=== PATIENT | male | born 1970 | race Caucasian/White ===

== ENCOUNTER 2018-01-31 18:13 | Inpatient (IN) | payer OTHER ==
[~2018-01-31] VITALS: Ht 162.6 cm; Wt 110.7 kg
[~2018-01-31 18:13] MED LIST: DIOVAN160 M1 PO; DIOVAN40 MG PO; GLUCOPHAGE XR500 MG PO
[2018-02-06] MEDS ORDERED: CARDURA XL4 MG PO (15:35)
[2018-02-06] MEDS ORDERED: TRADJENTA5 MG PO (15:37)
== END 2018-02-06 17:15 | disposition home or self-care (01) | DRG 684 ==
LOC: ER 18:13 → MEDI 22:18 → SURH 02-03 01:18
PROVIDERS: Urology
PROC: BW21ZZZ Computerized Tomography (CT Scan) of Abdomen and Pelvis (ICD-10-PCS; 2018-01-31)
PROC: 0TF68ZZ Fragmentation in Right Ureter, Via Natural or Artificial Opening Endoscopic (ICD-10-PCS; 2018-02-02)
PROC: 0T788DZ Dilation of Bilateral Ureters with Intraluminal Device, Via Natural or Artificial Opening Endoscopic (ICD-10-PCS; 2018-02-02)
PROC: 0TF78ZZ Fragmentation in Left Ureter, Via Natural or Artificial Opening Endoscopic (ICD-10-PCS; principal; 2018-02-02 19:00)
DX: N17.8 Other acute kidney failure (principal); N13.2 Hydronephrosis with renal and ureteral calculous obstruction; E11.649 Type 2 diabetes mellitus with hypoglycemia without coma; E11.65 Type 2 diabetes mellitus with hyperglycemia; E11.21 Type 2 diabetes mellitus with diabetic nephropathy; E11.22 Type 2 diabetes mellitus with diabetic chronic kidney disease; I12.9 Hypertensive chronic kidney disease with stage 1 through stage 4 chronic kidney disease, or unspecified chronic kidney disease; N18.3 Chronic kidney disease, stage 3 (moderate); E66.01 Morbid (severe) obesity due to excess calories

== ENCOUNTER 2018-04-06 05:15 | Day surgery (SDC) | payer OTHER ==
[~2018-04-06 05:15] MED LIST changes: +ASA81 MG PO; +CARDURA XL4 MG PO; +GLIMEPIRIDE4 MG PO; +TRADJENTA5 MG PO
== END 2018-04-06 13:05 | disposition home or self-care (01) ==
LOC: CIR.AMB 05:15
DX: N20.0 Calculus of kidney (principal)

== ENCOUNTER 2018-06-07 16:04 | Inpatient (IN) | payer OTHER ==
[~2018-06-07] VITALS: Ht 160 cm; Wt 108.9 kg
== END 2018-06-12 14:48 | disposition home or self-care (01) | DRG 683 ==
LOC: ER 16:04 → MEDJ 19:14
PROVIDERS: Urology
PROC: BW25ZZZ Computerized Tomography (CT Scan) of Chest, Abdomen and Pelvis (ICD-10-PCS; 2018-06-07)
PROC: 0T788DZ Dilation of Bilateral Ureters with Intraluminal Device, Via Natural or Artificial Opening Endoscopic (ICD-10-PCS; 2018-06-08)
PROC: 0TF68ZZ Fragmentation in Right Ureter, Via Natural or Artificial Opening Endoscopic (ICD-10-PCS; principal; 2018-06-08 10:15)
DX: N17.8 Other acute kidney failure (principal); N20.2 Calculus of kidney with calculus of ureter; N13.5 Crossing vessel and stricture of ureter without hydronephrosis; E11.22 Type 2 diabetes mellitus with diabetic chronic kidney disease; I12.9 Hypertensive chronic kidney disease with stage 1 through stage 4 chronic kidney disease, or unspecified chronic kidney disease; N18.3 Chronic kidney disease, stage 3 (moderate); E11.21 Type 2 diabetes mellitus with diabetic nephropathy; E11.649 Type 2 diabetes mellitus with hypoglycemia without coma; E11.65 Type 2 diabetes mellitus with hyperglycemia

== ENCOUNTER 2018-09-07 07:11 | Day surgery (SDC) | payer OTHER ==
[~2018-09-07 07:11] MED LIST changes: +AMLODIPINE BESYL5 MG PO
== END 2018-09-07 10:50 | disposition home or self-care (01) ==
LOC: CIR.AMB 07:11
DX: N35.816 Other urethral stricture, male, overlapping sites (principal)

== ENCOUNTER 2018-10-03 11:45 | Inpatient (IN) | payer OTHER ==
[~2018-10-03] VITALS: Ht 160 cm; Wt 108.0 kg
== END 2018-11-02 11:37 | disposition home or self-care (01) | DRG 661 ==
LOC: SURH 10-08 11:45 → O/R 10-29 05:48 → SURH 10-29 20:22
PROVIDERS: ADMIT Urology
PROC: 0T778DZ Dilation of Left Ureter with Intraluminal Device, Via Natural or Artificial Opening Endoscopic (ICD-10-PCS; 2018-10-29)
PROC: 0TP98DZ Removal of Intraluminal Device from Ureter, Via Natural or Artificial Opening Endoscopic (ICD-10-PCS; 2018-10-29)
PROC: 0TQ74ZZ Repair Left Ureter, Percutaneous Endoscopic Approach (ICD-10-PCS; principal; 2018-10-29 07:00)
DX: N35.816 Other urethral stricture, male, overlapping sites (principal)

== ENCOUNTER 2020-12-22 14:00 | Emergency (ER) | payer OTHER ==
[~2020-12-22] VITALS: Ht 160 cm; Wt 113.4 kg
[2020-12-22] MEDS ORDERED: ZYLOPRIM100 M1 (14:18)
[2020-12-22] MEDS ORDERED: COZAAR100 MG (14:18)
[2020-12-22] MEDS ORDERED: CRESTOR10 MG (14:19)
== END 2020-12-22 18:55 | disposition home or self-care (01) ==
LOC: ER 14:00
DX: J06.9 Acute upper respiratory infection, unspecified (principal); U07.1 COVID-19

== ENCOUNTER 2021-01-01 13:22 | Emergency (ER) | payer OTHER ==
[~2021-01-01] VITALS: Ht 162.6 cm; Wt 111.1 kg
[~2021-01-01 13:22] MED LIST changes: +COZAAR100 MG; +CRESTOR10 MG; +ZYLOPRIM100 M1
== END 2021-01-01 20:50 | disposition home or self-care (01) ==
LOC: ER 13:22
DX: U07.1 COVID-19 (principal); R06.02 Shortness of breath; R53.81 Other malaise